=== PATIENT | female | born 2000 | race African-American/Black ===

== ENCOUNTER 2023-06-02 14:17 | Emergency (ER) | payer MEDICAID ==
[~2023-06-02] VITALS: Ht 165.1 cm; Wt 63.0 kg
[2023-06-02 14:28] VITALS: BP 117/75; PULSE 85; RESP 16; TEMP 98; O2SAT 100
== END 2023-06-02 17:44 | disposition left against medical advice (07) ==
LOC: ER 14:17
DX: B37.31 Acute candidiasis of vulva and vagina (principal)
CPT/HCPCS: 99281

== ENCOUNTER 2023-06-03 17:04 | Emergency (ER) | payer MEDICAID ==
[~2023-06-03] VITALS: Ht 165.1 cm; Wt 62.0 kg
[2023-06-03 17:33] VITALS: BP 114/57; PULSE 87; RESP 12; TEMP 98.8; O2SAT 100
[2023-06-03 18:14] LABS: BASOPHILS % 0.3 % (0.0-2.0); EOSINOPHILS % 1.3 % (0.0-5.0); HEMATOCRIT. 39.3 % (36.0-48.0); HEMOGLOBIN. 12.9 g/dL (12.0-16.0); LYMPHOCYTES % 48.1 % (20.0-50.0); MEAN CORPUSCULAR HGB CONC 32.8 g/dL (31.0-37.0); MEAN CORPUSCULAR VOLUME 82.1 fL (81.0-99.0); MEAN PLATELET VOLUME 7.7 fl (7.4-10.4); MONOCYTES % 9.1 % (2.0-8.0); NEUTROPHILS % 41.2 % (40.0-76.0); PLATELET 343 x1000/uL (130-400); RED BLOOD CELL COUNT 4.79 mill/uL (4.2-5.4); WHITE BLOOD COUNT 4.9 x1000/uL (4.5-11.0)
[2023-06-03 18:24] LABS: INR 0.9; PROTHROMBIN TIME 10.2 sec (9.6-11.0)
[2023-06-03 18:28] LABS: ALANINE AMINOTRANSFERASE 9 IU/L (10-49); ALBUMIN 4.2 g/dL (3.2-4.8); ASPARTATE AMINOTRANSFERASE 16 IU/L (<34); BILIRUBIN TOTAL 0.2 mg/dL (0.1-1.0); CARBON DIOXIDE 28 mEq/L (21-32); CHLORIDE 106 mEq/L (98-107); CREATININE 0.7 mg/dL (0.6-1.0); GLUCOSE 78 mg/dL (70-105); POTASSIUM 4.2 mEq/L (3.5-5.1); PROTEIN TOTAL 7.3 g/dL (6.0-8.3); SODIUM 140 mEq/L (136-145); UREA NITROGEN BLOOD 7 mg/dL (9-23)
[2023-06-03 18:43] LABS: CLARITY URINE CLOUDY (CLEAR); COLOR URINE YELLOW (YELLOW); GLUCOSE URINE NEGATIVE (NEGATIVE); KETONES URINE TRACE (NEGATIVE); LEUKOCYTE ESTERASE URINE NEGATIVE (NEGATIVE); NITRITE URINE NEGATIVE (NEGATIVE); OCCULT BLOOD URINE NEGATIVE (NEGATIVE); PROTEIN URINE NEGATIVE (NEGATIVE); UROBILINOGEN URINE 0.2 E.U./dL (0.2-1.0)
[2023-06-03 19:10] LABS: BACTERIA URINE 1+; RBC URINE NONE SEEN /hpf (0-2); SQUAMOUS EPITHELIAL CELL URINE 2+ /lpf (RARE/1+)
[2023-06-03 21:46] LABS: HCG SCREEN POSITIVE
[2023-06-06 04:08] LABS: CHLAMYDIA TRACHOMATIS NAA Negative (Negative); NEISSERIA GONORRHOEAE NAA Negative (Negative)
== END 2023-06-03 22:42 | disposition left against medical advice (07) ==
LOC: ER 17:04
DX: O21.9 Vomiting of pregnancy, unspecified (principal); Z3A.08 8 weeks gestation of pregnancy
CPT/HCPCS: 87491; 87591; 80053; 81003; 81025; 84703; 84702; 83690; 85025; 85610; 36415; 99283; Z7610

== ENCOUNTER 2023-07-02 10:49 | Emergency (ER) | payer MEDICAID ==
[~2023-07-02] VITALS: Ht 165.1 cm; Wt 64.0 kg
[2023-07-02 10:53] VITALS: O2SAT 99
[2023-07-02] MEDS: AZITHROMYCIN 500 MG TABLET PO ONE (12:42)
[2023-07-02] MEDS: METOCLOPRAMIDE HCL 10MG TABLET PO ONE (12:42)
[2023-07-02 13:13] VITALS: BP 124/68; PULSE 82; RESP 18; TEMP 98.3
[2023-07-04 06:08] LABS: CHLAMYDIA TRACHOMATIS NAA Negative (Negative); NEISSERIA GONORRHOEAE NAA Negative (Negative)
== END 2023-07-02 13:15 | disposition home or self-care (01) ==
LOC: ER 10:49
DX: O26.891 Other specified pregnancy related conditions, first trimester (principal); Z3A.08 8 weeks gestation of pregnancy
CPT/HCPCS: 99284; 76801; 87491; 87591; 81025; 76817; J8597